=== PATIENT | male | born 1995 | race African-American/Black ===

== ENCOUNTER 2018-10-03 05:24 | Inpatient (IN) | payer OTHER ==
[~2018-10-03] VITALS: Ht 175.3 cm; Wt 113.4 kg
[~2018-10-03 05:24] MED LIST: ALBU8.5H6 INH; FLUT1DIS3 IH
[2018-10-03] MEDS ORDERED: MAGNESIUM SULFATE 1GM 100 ML IV ONE (05:30)
[2018-10-03] MEDS ORDERED: ALBUTEROL SULFATE 2.5 MG/3 ML NEBU. ONE (05:31)
--- NOTE | 2018-10-03 05:42 | PHYS DOC ---
Past Medical History Past Medical History: Asthma Past Surgical History: Tonsillectomy Alcohol Use: None Drug Use: None Adult General Chief Complaint Chief Complaint: SHORTNESS OF BREATH HPI HPI Patient is a 23 year old male who is presenting to the emergency room with severe shortness of breath onset about one or 2 hours ago he was he was having some asthma symptoms but it got much worse at that time no recent illnesses no fever history is limited by the patient's respiratory difficulties. Review of Systems Review of Systems Constitutional: Denies fever or chills [] Cardiovascular: No additional information not addressed in HPI [] Neurologic: Denies headache, focal weakness or sensory changes [] Endocrine: Denies polyuria or polydipsia [] All other systems were reviewed and found to be within normal limits, except as documented in this note. Current Medications Current Medications Current Medications Medications (Trade) Dose Ordered Sig/[place] Start Time Stop Time Status Last Admin Dose Admin Albuterol Sulfate (Ventolin Neb Soln) 2.5 mg STK-MED ONCE 10/03/18 05:31 10/03/18 05:32 DC Magnesium Sulfate 50 ml @ 25 mls/hr 1X ONCE 10/03/18 06:00 10/03/18 07:59 Magnesium Sulfate/ Dextrose 100 ml @ 100 mls/hr 1X ONCE 10/03/18 05:30 10/03/18 05:35 DC Methylprednisolone Sodium Succinate (SOLU-Medrol 125MG VIAL) 125 mg 1X ONCE 10/03/18 06:00 10/03/18 06:01 Sodium Chloride 1,000 ml @ 1,000 mls/hr 1X ONCE 10/03/18 06:00 10/03/18 06:59 Allergies Allergies Allergies Coded Allergies Type Severity Reaction Last Updated Verified No Known Drug Allergies 11/13/13 No Physical Exam Physical Exam Constitutional: Well developed, well nourished, moderate to severe distress HENT: Normocephalic, atraumatic, bilateral external ears normal, oropharynx moist, no oral exudates, nose normal. [] Eyes: PERRLA, EOMI, conjunctiva normal, no discharge. [] Neck: Normal range of motion, no tenderness, supple, no stridor. [] Cardiovascular: Mild tachycardia Lungs & Thorax: Wheezing noted bilaterally with increased respiratory effort the patient is speaking full sentences Abdomen: Bowel sounds normal, soft, no tenderness, no masses, no pulsatile masses. [] Skin: Diaphoretic Back: No tenderness, no CVA tenderness. [] Extremities: No tenderness, no cyanosis, no clubbing, ROM intact, no edema. [] Neurologic: Alert and oriented X 3, normal motor function, normal sensory function, no focal deficits noted. [] Psychologic: Affect normal, judgement normal, mood normal. [] BP 144/82 SAT 79 RA ON MY FIRST EVAL. UP TO 91 ON NRB. TACHYPNEIC TO 30'S. EKG EKG [] Radiology/Procedures Radiology/Procedures [] Course & Med Decision Making Course & Med Decision Making Pertinent Labs and Imaging studies reviewed. (See chart for details) [] Critical care time was 45 minutes exclusive of procedures. For management of acute hypoxemic respiratory failure. nrb sat 91. was 66 in triage 79 first in room once at rest. nrb sat up to 91-2, pt breathing more comfortably. lungs diminshed throughout. --> after 30 min of nebs some improved aeration, still tachypneic but pt states he feels better. cxr MY READ NEGATIVE ACUTE. pt has never been intubated he tells me. gave solumedrol continuous nebs and magnesium WILL DISCUSS with hospitalist service. will ask amando to look at labs. Dragon Disclaimer Andréson Disclaimer This electronic medical record was generated, in whole or in part, using a voice recognition dictation system. Departure Departure Impression: Primary Impression: Asthma exacerbation Disposition: ADMITTED INPATIENT Admitting Physician: EV Condition: STABLE Referrals: DANIELE FISHER DO (PCP) MARCUS ATWOOD MD Oct 03, 2018 05:42
[2018-10-03] MEDS ORDERED: methylPREDNISolone SOD SUCC PF 125 MG/2 ML VIAL. IV ONE (06:00)
[2018-10-03] MEDS ORDERED: IV NORMAL SALINE 1000ML BAG 1,000 ML IV ONE (06:00)
[2018-10-03] MEDS ORDERED: IV NORMAL SALINE 1000ML BAG 1,000 ML IV SCH (06:00)
[2018-10-03] MEDS ORDERED: ALBUTEROL SULFATE 2.5 MG/3 ML NEBU. CONT NEB ONE (06:00)
[2018-10-03] MEDS ORDERED: MAGNESIUM SULFATE 2GM 50 ML IV ONE (06:00)
[2018-10-03 06:06] LABS: BASO % 0 % (0-3); EOS # 0.3 x10^3/uL (0.0-0.7); EOS % 3 % (0-3); HEMATOCRIT 48.5 % (39.0-53.0); HEMOGLOBIN 16.3 g/dL (13.0-17.5); LYMPH # 4.1 x10^3/uL (1.0-4.8); LYMPH % 45 % (24-48); MEAN CORPUSCULAR HEMOGLOBIN 29 pg (25-35); MEAN CORPUSCULAR HGB CONC 34 g/dL (31-37); MEAN CORPUSCULAR VOLUME 87 fL (79-100); MONO # 0.7 x10^3/uL (0.0-1.1); MONO % 7 % (0-9); NEUT # 4.1 x10^3uL (1.8-7.7); NEUT % 45 % (31-73); PLATELET COUNT 335 x10^3/uL (140-400); RED BLOOD COUNT 5.56 x10^6/uL (4.30-5.70); RED CELL DISTRIBUTION WIDTH 13.7 % (11.5-14.5); WHITE BLOOD COUNT 9.2 x10^3/uL (4.0-11.0)
[2018-10-03 06:16] LABS: CALCIUM 9.2 mg/dL (8.5-10.1); CREATININE 1.5 mg/dL (0.7-1.3); GFR 71.5; POTASSIUM 3.5 mmol/L (3.5-5.1)
[2018-10-03 06:22] LABS: ALBUMIN 4.2 g/dL (3.4-5.0); ALBUMIN/GLOBULIN RATIO 1.1 (1.0-1.7); TOTAL BILIRUBIN 0.7 mg/dL (0.2-1.0); TOTAL PROTEIN 7.9 g/dL (6.4-8.2)
--- NOTE | 2018-10-03 06:40 | RAD ---
Chest radiograph 10/03/2018 5:30 AM INDICATION: Shortness of breath COMPARISON: None available TECHNIQUE: Portable upright frontal view of the chest is provided. FINDINGS: The cardiomediastinal silhouette is within normal limits. There are no pleural effusions. There is no pulmonary vascular congestion. There is no pneumothorax. The lungs are clear. No significant osseous abnormality is identified. IMPRESSION: No acute cardiopulmonary process. Electronically signed by: Rosalind Vega MD (10/03/2018 6:37 AM) [facility]
--- NOTE | 2018-10-03 07:38 | EKG ---
[facility] [address] [place] [address] Test Date: 2018-10-03 Test Time: 05:57:17 Pat Name: EDMAR TORRES Department: Room: Gender: M [employer]: : 1995 Requested By: MARCUS ATWOOD Order Number: [id number] Reading MD: Measurements Intervals [place] Rate: 92 P: 53 CO: 176 QRS: -76 QRSD: 86 T: 28 QT: 326 QTc: 408 Interpretive Statements SINUS RHYTHM ABNORMAL LEFT AXIS DEVIATION LEFT ANTERIOR FASCICULAR BLOCK INCOMPLETE RIGHT BUNDLE BRANCH BLOCK ABNORMAL ECG RI6.01 Unconfirmed report No previous ECG available for comparison
--- NOTE | 2018-10-03 07:48 | PDOC1 ---
History and Physical Date of Admission Date of Admission DATE: 10/03/18 TIME: 07:47 Identification/Chief Complaint Chief Complaint Shortness of breath Source Source: Patient History of Present Illness History of Present Illness Mr Tran is a 23yo college student, asthmatic who p/w shortness of breath and hypoxia when helping a friend move yesterday. Notes the home was very [place]. He has albuterol rescue inhaler and symbicort which did not alleviate his symptoms. Over 1 hour of nebulizers in the ED did not help significantly either. CXR did not show any sign of PE or consolidation. EMS noted pulse oximetry 86%, was on NRB in ED. No recent sick contacts, no history of intubation. Cr noted at 1.5 and AST elevated at 77. Past Medical History Cardiovascular: No pertinent hx Pulmonary: Asthma GI: No pertinent hx Heme/Onc: No pertinent hx Hepatobiliary: No pertinent hx Psych: No pertinent hx Rheumatologic: No pertinent hx Infectious disease: No pertinent hx ENT: No pertinent hx Renal/: No pertinent hx Endocrine: No pertinent hx Dermatology: No pertinent hx Past Surgical History Past Surgical History: No pertinent history Family History Family History: Asthma Social History Smoke: <1 pack per day ALCOHOL: rare Drugs: None Current Problem List Problem List Problems Medical Problems: (1) Asthma exacerbation Status: Acute Current Medications Current Medications Current Medications Magnesium Sulfate/ Dextrose 100 ml @ 100 mls/hr 1X ONCE IV ; Start 10/03/18 at 05:30; Stop 10/03/18 at 05:35; Status DC Albuterol Sulfate (Ventolin Neb Soln) 10 mg 1X ONCE CONT NEB Last administered on 10/03/18at 06:00; Start 10/03/18 at 06:00; Stop 10/03/18 at 06:01; Status DC Methylprednisolone Sodium Succinate (SOLU-Medrol 125MG VIAL) 125 mg 1X ONCE IV Last administered on 10/03/18at 06:05; Start 10/03/18 at 06:00; Stop 10/03/18 at 06:01; Status DC Albuterol Sulfate (Ventolin Neb Soln) 2.5 mg STK-MED ONCE .ROUTE ; Start 10/03/18 at 05:31; Stop 10/03/18 at 05:32; Status DC Magnesium Sulfate 50 ml @ 25 mls/hr 1X ONCE IV Last administered on 10/03/18at 06:06; Start 10/03/18 at 06:00; Stop 10/03/18 at 07:59 Sodium Chloride 1,000 ml @ 1,000 mls/hr 1X ONCE IV Last administered on 10/03/18at 06:00; Start 10/03/18 at 06:00; Stop 10/03/18 at 06:59; Status DC Sodium Chloride 1,000 ml @ 100 mls/hr Q10H IV ; Start 10/03/18 at 06:00; Stop 10/04/18 at 05:59 Albuterol/ Ipratropium (Duoneb) 3 ml RTQID NEB ; Start 10/03/18 at 08:00; Stop 10/04/18 at 07:59 Active Scripts Active Reported Advair 250-50 Diskus (Fluticasone/Salmeterol) 1 Each Disk.w.dev 1 Inh IH BID Albuterol Sulfate Hfa Inhaler (Albuterol Sulfate) 8.5 Gm Hfa.aer.ad 2 Puff INH Q4HRS Allergies Allergies: Coded Allergies: No Known Drug Allergies (Unverified , 11/13/13) ROS General: YES: Fatigue, Malaise; No: Chills, Night Sweats, Appetite, Other PSYCHOLOGICAL ROS: No: Anxiety, Behavioral Disorder, Concentration difficultie, Decreased libido, Depression, Disorientation, Hallucinations, Hostility, Irritablity, Memory difficulties, Mood Swings, Obsessive thoughts, Physical abuse, Sexual abuse, Sleep disturbances, Suicidal ideation, Other Eyes: No Blurry vision, No Decreased vision, No Double vision, No Dry eyes, No Excessive tearing, No Eye Pain, No Itchy Eyes, No Loss of vision, No Photophobia, No Scotomata, No Uses contacts, No Uses glasses, No Other HEENT: No: Heacaches, Visual Changes, Hearing change, Nasal congestion, Nasal discharge, Oral lesions, Sinus pain, Sore Throat, Epistaxis, Sneezing, Snoring, Tinnitus, Vertigo, Vocal changes, Other ALLERGY AND IMMUNOLOGY: YES: Nasal Congestion, Seasonal Allergies; No: Hives, Insect Bite Sensitivity, Itchy/Watery Eyes, Post Nasal Drip, Other Hematological and Lymphatic: No: Bleeding Problems, Blood Clots, Blood Transfusions, Brusing, Night Sweats, Pallor, Swollen Lymph Nodes, Other ENDOCRINE: No: Breast Changes, Galactorrhea, Hair Pattern Changes, Hot Flashes, Malaise/lethargy, Mood Swings, Palpitations, Polydipsia/polyuria, Skin Changes, Temperature Intolerance, Unexpected Weight Changes, Other Breast: No New/Changing Breast Lumps, No Nipple changes, No Nipple discharge, No Other Respiratory: YES: Cough, Shortness of breath, SOB with excertion, Tachypnea, Wheezing; No: Hemoptysis, Orthopnea, Pleuritic Pain, Sputum Changes, Stridor, Other Cardiovascular: No Chest Pain, No Palpitations, No Orthopnea, No Paroxysmal Noc. Dyspnea, No Edema, No Lt Headedness, No Other Gastrointestinal: No Nausea, No Vomiting, No Abdominal Pain, No Diarrhea, No Constipation, No Melena, No Hematochezia, No Other Genitourinary: No Dysuria, No Frequency, No Incontinence, No Hematuria, No Retention, No Discharge, No Urgency, No Pain, No Flank Pain, No Other, No , No , No , No , No , No , No Musculoskeletal: No Gait Disturbance, No Joint Pain, No Joint Stiffness, No Joint Swelling, No Muscle Pain, No Muscular Weakness, No Pain In:, No Swelling In:, No Other Neurological: No Behavorial Changes, No Bowel/Bladder ControlChng, No Confusion, No Dizziness, No Gait Disturbance, No Headaches, No Impaired Coord/balance, No Memory Loss, No Numbness/Tingling, No Seizures, No Speech Problems, No Tremors, No Visual Changes, No Weakness, No Other Skin: No Dry Skin, No Eczema, No Hair Changes, No Lumps, No Mole Changes, No Mottling, No Nail Changes, No Pruritus, No Rash, No Skin Lesion Changes, No Other, No Acne Physical Exam General: Alert, Oriented X3, Cooperative, No acute distress HEENT: Atraumatic, PERRLA, EOMI, Mucous membr. moist/pink Lungs: Other (Scattered wheezing, prolonged expiratory phase, little air movement) Heart: S1S2, RRR Abdomen: Normal bowel sounds, Soft, No tenderness, No hepatosplenomegaly, No masses Rectal Exam: not examined Extremities: No clubbing, No cyanosis, No edema, Normal pulses, No tenderness/swelling Skin: No rashes, No breakdown, No significant lesion Neuro: Normal gait, Normal speech, Strength at 5/5 X4 ext, Normal tone, Sensation intact, Cranial nerves 3-12 NL, Reflexes 2+ Psych/Mental Status: Mental status NL, Mood NL Vitals Vitals Vital Signs Date Time Temp Pulse Resp B/P (MAP) Pulse Ox O2 Delivery O2 Flow Rate FiO2 10/03/18 05:59 94 NonRebreather Mask 15.0 10/03/18 05:30 98.0 106 29 144/82 (102) 98.0 Labs Labs Laboratory Tests Test 10/03/18 05:35 White Blood Count 9.2 x10^3/uL (4.0-11.0) Red Blood Count 5.56 x10^6/uL (4.30-5.70) Hemoglobin 16.3 g/dL (13.0-17.5) Hematocrit 48.5 % (39.0-53.0) Mean Corpuscular Volume 87 fL (79-100) Mean Corpuscular Hemoglobin 29 pg (25-35) Mean Corpuscular Hemoglobin Concent 34 g/dL (31-37) Red Cell Distribution Width 13.7 % (11.5-14.5) Platelet Count 335 x10^3/uL (140-400) Neutrophils (%) (Auto) 45 % (31-73) Lymphocytes (%) (Auto) 45 % (24-48) Monocytes (%) (Auto) 7 % (0-9) Eosinophils (%) (Auto) 3 % (0-3) Basophils (%) (Auto) 0 % (0-3) Neutrophils # (Auto) 4.1 x10^3uL (1.8-7.7) Lymphocytes # (Auto) 4.1 x10^3/uL (1.0-4.8) Monocytes # (Auto) 0.7 x10^3/uL (0.0-1.1) Eosinophils # (Auto) 0.3 x10^3/uL (0.0-0.7) Basophils # (Auto) 0.0 x10^3/uL (0.0-0.2) Sodium Level 141 mmol/L (136-145) Potassium Level 3.5 mmol/L (3.5-5.1) Chloride Level 102 mmol/L (98-107) Carbon Dioxide Level 28 mmol/L (21-32) Anion Gap 11 (6-14) Blood Urea Nitrogen 18 mg/dL (8-26) Creatinine 1.5 mg/dL (0.7-1.3) Estimated GFR (Cockcroft-Gault) 71.5 BUN/Creatinine Ratio 12 (6-20) Glucose Level 102 mg/dL (70-99) Calcium Level 9.2 mg/dL (8.5-10.1) Total Bilirubin 0.7 mg/dL (0.2-1.0) Aspartate Amino Transf (AST/SGOT) 77 U/L (15-37) Alanine Aminotransferase (ALT/SGPT) 44 U/L (16-63) Alkaline Phosphatase 69 U/L (46-116) KK-Qsl-O-Type Natriuretic Peptide 9 pg/mL (0-124) Total Protein 7.9 g/dL (6.4-8.2) Albumin 4.2 g/dL (3.4-5.0) Albumin/Globulin Ratio 1.1 (1.0-1.7) Laboratory Tests Test 10/03/18 05:35 White Blood Count 9.2 x10^3/uL (4.0-11.0) Red Blood Count 5.56 x10^6/uL (4.30-5.70) Hemoglobin 16.3 g/dL (13.0-17.5) Hematocrit 48.5 % (39.0-53.0) Mean Corpuscular Volume 87 fL (79-100) Mean Corpuscular Hemoglobin 29 pg (25-35) Mean Corpuscular Hemoglobin Concent 34 g/dL (31-37) Red Cell Distribution Width 13.7 % (11.5-14.5) Platelet Count 335 x10^3/uL (140-400) Neutrophils (%) (Auto) 45 % (31-73) Lymphocytes (%) (Auto) 45 % (24-48) Monocytes (%) (Auto) 7 % (0-9) Eosinophils (%) (Auto) 3 % (0-3) Basophils (%) (Auto) 0 % (0-3) Neutrophils # (Auto) 4.1 x10^3uL (1.8-7.7) Lymphocytes # (Auto) 4.1 x10^3/uL (1.0-4.8) Monocytes # (Auto) 0.7 x10^3/uL (0.0-1.1) Eosinophils # (Auto) 0.3 x10^3/uL (0.0-0.7) Basophils # (Auto) 0.0 x10^3/uL (0.0-0.2) Sodium Level 141 mmol/L (136-145) Potassium Level 3.5 mmol/L (3.5-5.1) Chloride Level 102 mmol/L (98-107) Carbon Dioxide Level 28 mmol/L (21-32) Anion Gap 11 (6-14) Blood Urea Nitrogen 18 mg/dL (8-26) Creatinine 1.5 mg/dL (0.7-1.3) Estimated GFR (Cockcroft-Gault) 71.5 BUN/Creatinine Ratio 12 (6-20) Glucose Level 102 mg/dL (70-99) Calcium Level 9.2 mg/dL (8.5-10.1) Total Bilirubin 0.7 mg/dL (0.2-1.0) Aspartate Amino Transf (AST/SGOT) 77 U/L (15-37) Alanine Aminotransferase (ALT/SGPT) 44 U/L (16-63) Alkaline Phosphatase 69 U/L (46-116) ET-Rma-N-Type Natriuretic Peptide 9 pg/mL (0-124) Total Protein 7.9 g/dL (6.4-8.2) Albumin 4.2 g/dL (3.4-5.0) Albumin/Globulin Ratio 1.1 (1.0-1.7) Images Images CXR - No acute cardiopulmonary process. VTE Prophylaxis Ordered VTE Prophylaxis Devices: Yes VTE Pharmacological Prophylaxi: No Assessment/Plan Assessment/Plan A/P: Acute asthma exacerbation - likely 2/2 dust/mold exposure. Will add pulmicort nebs, solumedrol q 8 hours, consult pulm. Radhair Acute hypoxia - Likely from asthma, will wean O2 as tolerated MASSIMO - no history of kidney disease. BUN 18, will give some gentle hydration, this is likely vasomotor nephropathy from dehydration Transaminitis - no recent ETOH ingestion, AST is all that is elevated. Will monitor trend. No abdominal pain FEN - general diet. NSS 1L PPX - SCDs FULL CODE Inpatient for acute asthma exacerbation with hypoxia, needs close monitoring. BEST EUBANKS MD Oct 03, 2018 07:48
[2018-10-03] MEDS ORDERED: BUDESONIDE 0.5 MG/2 ML NEBU. NEB SCH (08:00)
[2018-10-03] MEDS: IPRATRPIUM/ALBUTEROL 0.5/2.5MG 3 ML NEBU. NEB SCH ×2 (08:48→12:09)
[2018-10-03] MEDS ORDERED: CETIRIZINE HCL 10 MG TABLET. PO SCH (09:00)
[2018-10-03 11:00] VITALS: BP 131/56
[2018-10-03] MEDS ORDERED: MONT10TA49 PO (13:08)
[2018-10-03] MEDS ORDERED: PRED20TA PO (13:08)
[2018-10-03] MEDS ORDERED: methylPREDNISolone SOD SUCC PF 40 MG/ML VIAL. IV SCH (14:00)
--- NOTE | 2018-10-03 14:28 | NUR ---
Discharge Note: EDMAR TRAN [address] [place] [address] Discharge instructions and discharge home medications reviewed with Patient and a copy given. All questions have been answered and understanding verbalized. The following instructions and handouts were given: follow up instructions, activity, and medication list. Discontinued lines and drains: Peripheral IV discontinued and intact. Patient discharged to Home or Self Care with Friend via Ambulated
[2018-10-03] MEDS ORDERED: MONTELUKAST SODIUM 10 MG TABLET. PO SCH (21:00)
== END 2018-10-03 14:00 | disposition home or self-care (01) | DRG 202 ==
LOC: ER 05:24 → ED HOLD 06:53 → 6 SOUTH 11:00
PROVIDERS: ADMIT Family Medicine; ATTEND Family Medicine
DX: J45.901 Unspecified asthma with (acute) exacerbation (principal); N17.0 Acute kidney failure with tubular necrosis; E86.0 Dehydration; F17.210 Nicotine dependence, cigarettes, uncomplicated; R09.02 Hypoxemia; Z77.120 Contact with and (suspected) exposure to mold (toxic); Z82.5 Family history of asthma and other chronic lower respiratory diseases
CPT/HCPCS: 36415; 71045; 80053; 83880; 85025; 93005; 94640; 94644; 94760; J2920; J2930; J3475; J7030; J7613; J7620; J7626

== ENCOUNTER 2019-11-05 08:51 | Emergency (ER) | payer OTHER ==
[~2019-11-05] VITALS: Ht 172.7 cm; Wt 125.0 kg
[~2019-11-05 08:51] MED LIST changes: +MONT10TA49 PO; +PRED20TA PO
[2019-11-05 09:38] LABS: BILIRUBIN,URINE NEGATIVE (NEG); CLARITY,URINE CLEAR; COLOR,URINE YELLOW; NITRITE,URINE NEGATIVE (NEG); PH,URINE 6.5 (<5.0-8.0); PROTEIN,URINE NEGATIVE (NEG-TRACE); UROBILINOGEN,URINE 0.2 mg/dL (0.2 mg/dL)
[2019-11-05 09:52] LABS: BACTERIA,URINE 0 /HPF (0-FEW); RBC,URINE 0 /HPF (0-2); SQUAMOUS EPITHELIAL CELL,UR OCC /LPF; WBC,URINE 0 /HPF (0-4)
--- NOTE | 2019-11-05 10:32 | RAD ---
EXAM: Villar scale and color Doppler scrotal sonogram. HISTORY: Right scrotal mass. TECHNIQUE: Villar scale and color Doppler sonographic imaging of the scrotum with spectral waveform analysis was performed. COMPARISON: None. FINDINGS: The testes are normal in size and demonstrate normal symmetric blood flow. No focal testicular parenchymal lesion is seen. The epididymides are symmetric in size and demonstrate symmetric blood flow, the right of which corresponds with the site of reported palpable concern. No hydrocele or varicocele is seen. No scrotal wall thickening or inguinal hernia is seen. IMPRESSION: Unremarkable scrotal sonogram. There is a normal-appearing right epididymis at the site of concern. Continued clinical follow-up of palpable abnormalities is recommended. Repeat imaging can be performed if there is continuing concern. Electronically signed by: Theodora Barba MD (11/05/2019 10:29 AM) [id number]
--- NOTE | 2019-11-05 10:50 | PHYS DOC ---
Past Medical History Past Medical History: Asthma Past Surgical History: Tonsillectomy Smoking Status: Light Tobacco Smoker Alcohol Use: Rarely Drug Use: None General Adult EDM: Chief Complaint: TESTICULAR PAIN OR INJURY HPI: HPI: Patient is a 24 year old male who presented to ER today for evaluation of right side scrotal swelling. Patient denies penile discharge or any fever or any pelvic pain. Patient felt little irritation in his scrotum all the symptoms have been several days ago. Patient denies any injury Review of Systems: Review of Systems: Constitutional: Denies fever or chills. [] Eyes: Denies change in visual acuity. [] HENT: Denies nasal congestion or sore throat. [] Respiratory: Denies cough or shortness of breath. [] Cardiovascular: Denies chest pain or edema. [] GI: Denies abdominal pain, nausea, vomiting, bloody stools or diarrhea. [] : Denies dysuria. [] Musculoskeletal: Denies back pain or joint pain. [] Integument: Denies rash. [] Neurologic: Denies headache, focal weakness or sensory changes. [] Endocrine: Denies polyuria or polydipsia. [] Lymphatic: Denies swollen glands. [] Psychiatric: Denies depression or anxiety. [] Heart Score: Risk Factors: Risk Factors: DM, Current or recent (<one month) smoker, HTN, HLP, family history of CAD, obesity. Risk Scores: Score 0 - 3: 2.5% MACE over next 6 weeks - Discharge Home Score 4 - 6: 20.3% MACE over next 6 weeks - Admit for Clinical Observation Score 7 - 10: 72.7% MACE over next 6 weeks - Early Invasive Strategies Allergies: Allergies: Allergies Coded Allergies Type Severity Reaction Last Updated Verified No Known Drug Allergies 11/13/13 No Physical Exam: PE: Constitutional: Well developed, well nourished, no acute distress, non-toxic appearance. [] HENT: Normocephalic, atraumatic, bilateral external ears normal, oropharynx mo ist, no oral exudates, nose normal. [] Eyes: PERRLA, EOMI, conjunctiva normal, no discharge. [] Neck: Normal range of motion, no tenderness, supple, no stridor. [] Cardiovascular:Heart rate regular rhythm, no murmur [] Lungs & Thorax: Bilateral breath sounds clear to auscultation [] Abdomen: Bowel sounds normal, soft, no tenderness, no masses, no pulsatile masses. [] Skin: Warm, dry, no erythema, no rash. [] Back: No tenderness, no CVA tenderness. [] Extremities: No tenderness, no cyanosis, no clubbing, ROM intact, no edema. [] Neurologic: Alert and oriented X 3, normal motor function, normal sensory function, no focal deficits noted. [] Psychologic: Affect normal, judgement normal, mood normal. [] EXAM: No swelling or tenderness to palpation on the right side scrotum, no scrotal swelling, no testicular swelling, no penile discharge no external skin lesion. Current Patient Data: Labs: Laboratory Tests Test 11/05/19 09:30 Urine Collection Type Unknown Urine Color Yellow Urine Clarity Clear Urine pH 6.5 (<5.0-8.0) Urine Specific [place] <=1.005 (1.000-1.030) Urine Protein Negative mg/dL (NEG-TRACE) Urine Glucose (UA) Negative mg/dL (NEG) Urine Ketones (Stick) Negative mg/dL (NEG) Urine Blood Negative (NEG) Urine Nitrite Negative (NEG) Urine Bilirubin Negative (NEG) Urine Urobilinogen Dipstick 0.2 mg/dL (0.2 mg/dL) Urine Leukocyte Esterase Negative (NEG) Urine RBC 0 /HPF (0-2) Urine WBC 0 /HPF (0-4) Urine Squamous Epithelial Cells Occ /LPF Urine Bacteria 0 /HPF (0-FEW) Vital Signs: Vital Signs Date Time Temp Pulse Resp B/P (MAP) Pulse Ox O2 Delivery O2 Flow Rate FiO2 11/05/19 09:26 97.1 72 18 138/79 (98) 100 Room Air 97.1 EKG: EKG: [] Radiology/Procedures: Radiology/Procedures: [][facility] [address] [place], [place] [id number] IMAGING REPORT Signed PATIENT: EDMAR TRAN JACCOUNT: [id number] : 1995 LOCATION: ER AGE: 24 SEX: M EXAM STATUS: REG ER ORD. PHYSICIAN: KIM,PETER T DO REASON: RIGHT SCROTAL MASS PROCEDURE: TESTICULAR/SCROTUM EXAM: Villar scale and color Doppler scrotal sonogram. HISTORY: Right scrotal mass. TECHNIQUE: Villar scale and color Doppler sonographic imaging of the scrotum with spectral waveform analysis was performed. COMPARISON: None. FINDINGS: The testes are normal in size and demonstrate normal symmetric blood flow. No focal testicular parenchymal lesion is seen. The epididymides are symmetric in size and demonstrate symmetric blood flow, the right of which corresponds with the site of reported palpable concern. No hydrocele or varicocele is seen. No scrotal wall thickening or inguinal hernia is seen. IMPRESSION: Unremarkable scrotal sonogram. There is a normal-appearing right epididymis at the site of concern. Continued clinical follow-up of palpable abnormalities is recommended. Repeat imaging can be performed if there is continuing concern. Electronically signed by: Theodora Metz MD (11/05/2019 10:29 AM) [id number] DICTATED and SIGNED BY: THEODORA METZ MD DATE: 11/05/19 1029 Course & Med Decision Making: Course & Med Decision Making Pertinent Labs and Imaging studies reviewed. (See chart for details) [] Dragon Disclaimer: Dragon Disclaimer: This electronic medical record was generated, in whole or in part, using a voice recognition dictation system. Departure Departure Impression: Primary Impression: Testicular/scrotal pain Disposition: 01 HOME, SELF-CARE Condition: STABLE Referrals: BRIANA GALEANO (PCP) PLEASE FOLLOW UP WITH YOUR DOCTOR NEEDED Patient Instructions: Scrotal Swelling Justicifation of Admission Dx: Justifications for Admission: Justification of Admission Dx: N/A ANDRESSA KIM DO Nov 05, 2019 10:49
[2019-11-05 10:55] VITALS: BP 142/85
== END 2019-11-05 11:00 | disposition home or self-care (01) ==
LOC: ER 08:51
DX: N50.82 Scrotal pain (principal); J45.909 Unspecified asthma, uncomplicated; Z90.89 Acquired absence of other organs; Z87.891 Personal history of nicotine dependence
CPT/HCPCS: 76870; 81001; 99284

== ENCOUNTER 2020-06-02 06:48 | Emergency (ER) | payer OTHER ==
[~2020-06-02] VITALS: Ht 176.5 cm; Wt 111.8 kg
[2020-06-02 07:09] LABS: BASO % 0 % (0-3); EOS # 0.3 x10^3/uL (0.0-0.7); EOS % 2 % (0-3); HEMATOCRIT 48.4 % (39.0-53.0); HEMOGLOBIN 15.8 g/dL (13.0-17.5); LYMPH # 6.4 x10^3/uL (1.0-4.8); LYMPH % 49 % (24-48); MEAN CORPUSCULAR HEMOGLOBIN 29 pg (25-35); MEAN CORPUSCULAR HGB CONC 33 g/dL (31-37); MEAN CORPUSCULAR VOLUME 89 fL (79-100); MONO # 1.2 x10^3/uL (0.0-1.1); MONO % 9 % (0-9); NEUT % 39 % (31-73); PLATELET COUNT 383 x10^3/uL (140-400); RED BLOOD COUNT 5.48 x10^6/uL (4.30-5.70); RED CELL DISTRIBUTION WIDTH 14.1 % (11.5-14.5)
[2020-06-02 07:18] LABS: CALCIUM 8.6 mg/dL (8.5-10.1); CREATININE 1.4 mg/dL (0.7-1.3); GFR 62.8; POTASSIUM 3.4 mmol/L (3.5-5.1)
[2020-06-02 07:24] LABS: ALBUMIN/GLOBULIN RATIO 1.1 (1.0-1.7); MAGNESIUM 2.2 mg/dL (1.8-2.4); TOTAL BILIRUBIN 0.7 mg/dL (0.2-1.0); TOTAL PROTEIN 7.6 g/dL (6.4-8.2)
[2020-06-02] MEDS ORDERED: MAGNESIUM SULFATE 1GM 100 ML IV ONE (07:30)
[2020-06-02] MEDS ORDERED: methylPREDNISolone SOD SUCC PF 125 MG/2 ML VIAL. IV ONE (07:30)
[2020-06-02] MEDS ORDERED: IV NORMAL SALINE 1000ML BAG 1,000 ML IV ONE (07:30)
[2020-06-02] MEDS ORDERED: IPRATRPIUM/ALBUTEROL 0.5/2.5MG 3 ML NEBU. NEB ONE ×2 (07:30→08:00)
--- NOTE | 2020-06-02 07:36 | RAD ---
INDICATION: Reason: dyspnea / Spl. Instructions: / History: COMPARISON: September 2018 FINDINGS: Single view of chest obtained. Cardiac silhouette is similar to prior. No definite focal airspace consolidation or pulmonary edema. IMPRESSION: * No focal airspace consolidation or edema. Electronically signed by: Sean Ramirez MD (06/02/2020 7:34 AM) [id number]
--- NOTE | 2020-06-02 07:52 | ED.ADGEN ---
Past Medical History Past Medical History: Asthma Past Surgical History: Tonsillectomy Smoking Status: Never Smoker Alcohol Use: Rarely General Adult EDM: Chief Complaint: SHORTNESS OF BREATH HPI: HPI: Patient is a 25 year old male coming in for shortness of breath just prior to arrival. Patient is a history of asthma centralizes rescue inhaler without improvement. Has a history of severe asthma attacks in the past. States he otherwise has been well. Attributes this exacerbation to air quality. Denies any recent illness. Review of Systems: Review of Systems: All other systems within normal limits except for as noted in the HPI Current Medications: Current Medications Medications (Trade) Dose Ordered Sig/[place] Start Time Stop Time Status Last Admin Dose Admin Albuterol/ Ipratropium (Duoneb) 3 ml 1X ONCE 06/02/20 08:00 06/02/20 08:01 DC 06/02/20 08:00 3 ML Magnesium Sulfate/ Dextrose 100 ml @ 100 mls/hr 1X ONCE 06/02/20 07:30 06/02/20 08:29 DC 06/02/20 07:31 100 MLS/HR Methylprednisolone Sodium Succinate (SOLU-Medrol 125MG VIAL) 125 mg 1X ONCE 06/02/20 07:30 06/02/20 07:31 DC 06/02/20 07:35 125 MG Sodium Chloride 1,000 ml @ 1,000 mls/hr 1X ONCE 06/02/20 07:30 06/02/20 08:29 DC 06/02/20 07:30 1,000 MLS/HR Allergies: Allergies: Allergies Coded Allergies Type Severity Reaction Last Updated Verified No Known Drug Allergies 06/02/20 No Physical Exam: PE: Constitutional: Well developed, well nourished, no acute distress, non-toxic appearance. [] HENT: Normocephalic, atraumatic, bilateral external ears normal, nose normal. [] Eyes: PERRLA, conjunctiva normal, no discharge. [] Neck: No rigidity, supple, no stridor. [] Cardiovascular: Tachycardic, brisk cap refill [] Lungs & Thorax: Labored respiration with tachypnea. Bilateral wheezes with crackles at left base [] Abdomen: Soft, nondistended. Skin: Warm, dry, no erythema, no rash. [] Back: Unremarkable Extremities: No deformities, range of motion grossly intact, no lower extremity edema [] Neurologic: Alert and oriented X 3, no focal deficits noted. [] Psychologic: Affect normal, judgement normal, mood normal. [] Current Patient Data: Labs: Laboratory Tests Test 06/02/20 07:00 White Blood Count 13.0 x10^3/uL (4.0-11.0) H Red Blood Count 5.48 x10^6/uL (4.30-5.70) Hemoglobin 15.8 g/dL (13.0-17.5) Hematocrit 48.4 % (39.0-53.0) Mean Corpuscular Volume 89 fL (79-100) Mean Corpuscular Hemoglobin 29 pg (25-35) Mean Corpuscular Hemoglobin Concent 33 g/dL (31-37) Red Cell Distribution Width 14.1 % (11.5-14.5) Platelet Count 383 x10^3/uL (140-400) Neutrophils (%) (Auto) 39 % (31-73) Lymphocytes (%) (Auto) 49 % (24-48) H Monocytes (%) (Auto) 9 % (0-9) Eosinophils (%) (Auto) 2 % (0-3) Basophils (%) (Auto) 0 % (0-3) Neutrophils # (Auto) 5.0 x10^3/uL (1.8-7.7) Lymphocytes # (Auto) 6.4 x10^3/uL (1.0-4.8) H Monocytes # (Auto) 1.2 x10^3/uL (0.0-1.1) H Eosinophils # (Auto) 0.3 x10^3/uL (0.0-0.7) Basophils # (Auto) 0.0 x10^3/uL (0.0-0.2) Sodium Level 145 mmol/L (136-145) Potassium Level 3.4 mmol/L (3.5-5.1) L Chloride Level 105 mmol/L (98-107) Carbon Dioxide Level 29 mmol/L (21-32) Anion Gap 11 (6-14) Blood Urea Nitrogen 13 mg/dL (8-26) Creatinine 1.4 mg/dL (0.7-1.3) H Estimated GFR (Cockcroft-Gault) 62.8 BUN/Creatinine Ratio 9 (6-20) Glucose Level 117 mg/dL (70-99) H Calcium Level 8.6 mg/dL (8.5-10.1) Magnesium Level 2.2 mg/dL (1.8-2.4) Total Bilirubin 0.7 mg/dL (0.2-1.0) Aspartate Amino Transferase (AST) 19 U/L (15-37) Alanine Aminotransferase (ALT) 31 U/L (16-63) Alkaline Phosphatase 61 U/L (46-116) Troponin I Quantitative < 0.017 ng/mL (0.000-0.055) MG-Eld-G-Type Natriuretic Peptide 56 pg/mL (0-124) Total Protein 7.6 g/dL (6.4-8.2) Albumin 4.0 g/dL (3.4-5.0) Albumin/Globulin Ratio 1.1 (1.0-1.7) Laboratory Tests 06/02/20 07:00 Laboratory Tests 06/02/20 07:00 Vital Signs: Vital Signs Date Time Temp Pulse Resp B/P (MAP) Pulse Ox O2 Delivery O2 Flow Rate FiO2 06/02/20 08:01 100 BiPAP/CPAP 06/02/20 06:55 97.4 109 20 193/118 (143) 15.0 97.4 EKG: EKG: Sinus tachycardia with a heart rate of 105 bpm, left axis deviation, no ST elevation or depression, no ectopy, normal intervals. [] Heart Score: Risk Factors: Risk Factors: DM, Current or recent (<one month) smoker, HTN, HLP, family history of CAD, obesity. Risk Scores: Score 0 - 3: 2.5% MACE over next 6 weeks - Discharge Home Score 4 - 6: 20.3% MACE over next 6 weeks - Admit for Clinical Observation Score 7 - 10: 72.7% MACE over next 6 weeks - Early Invasive Strategies Radiology/Procedures: Radiology/Procedures: INDICATION: Reason: dyspnea / Spl. Instructions: / History: COMPARISON: September 2018 FINDINGS: Single view of chest obtained. Cardiac silhouette is similar to prior. No definite focal airspace consolidation or pulmonary edema. IMPRESSION: * No focal airspace consolidation or edema. [] Course & Med Decision Making: Course & Med Decision Making Patient placed on BiPAP and given DuoNeb with improvement. O2 sats went from 62% to 100%. Maintaining sats in the 9% on room air. [] Dragon Disclaimer: Dragon Disclaimer: This electronic medical record was generated, in whole or in part, using a voice recognition dictation system. Departure Departure Impression: Primary Impression: Asthma exacerbation Disposition: 01 DC HOME SELF CARE/HOMELESS Condition: IMPROVED Referrals: BRIANA GALEANO (PCP) Patient Instructions: Asthma Prevention-Brief Scripts Albuterol Sulfate (PROAIR HFA INHALER) 8.5 Gm Hfa.aer.ad 2 PUFF IH PRN Q4-6HRS PRN for wheezing for 21 Days, #1 INHALER 0 Refills Prov: MIGUEL MARTINEZ MD 06/02/20 Fluticasone/Salmeterol (ADVAIR 250-50 DISKUS) 1 Each Disk.w.dev 1 PUFF IH BID for asthma for 30 Days, #1 INHALER 5 Refills Prov: MIGUEL MARTINEZ MD 06/02/20 Prednisone (PREDNISONE) 50 Mg Tablet 1 TAB PO DAILY for steroid, #5 TAB Prov: MIGUEL MARTINEZ MD 06/02/20 MIGUEL MARTINEZ MD Jun 02, 2020 07:52
[2020-06-02 09:13] VITALS: BP 137/60
[2020-06-02] MEDS ORDERED: FLUT1DIS3 IH (09:20)
[2020-06-02] MEDS ORDERED: PRED50TA PO (09:20)
[2020-06-02] MEDS ORDERED: ALBU2.5V8 IH (09:20)
--- NOTE | 2020-06-02 19:42 | EKG ---
[facility] [address] [place] [address] Test Date: 2020-06-02 Test Time: 07:06:14 Pat Name: EDMAR KHAN Department: Room: Gender: M Supervisor Calibration: : 1995 Requested By: MIGUEL MARTINEZ Order Number: [id number] Reading MD: Measurements Intervals [place] Rate: 105 P: 74 MI: 164 QRS: -73 QRSD: 86 T: 35 QT: 312 QTc: 416 Interpretive Statements SINUS TACHYCARDIA ABNORMAL LEFT AXIS DEVIATION LEFT ANTERIOR FASCICULAR BLOCK INCOMPLETE RIGHT BUNDLE BRANCH BLOCK ABNORMAL ECG RI6.02 No previous ECG available for comparison
== END 2020-06-02 10:06 | disposition home or self-care (01) ==
LOC: MERGE 06:48 → ER 06:48
DX: J45.901 Unspecified asthma with (acute) exacerbation (principal); J45.909 Unspecified asthma, uncomplicated; Z90.89 Acquired absence of other organs
CPT/HCPCS: 36415; 71045; 80053; 83735; 83880; 84484; 85025; 93005; 94640; 94660; 94760; 96365; 96375; 99285; J2930; J3475; J7030

== ENCOUNTER 2020-09-03 12:55 | Emergency (ER) | payer OTHER ==
[~2020-09-03] VITALS: Ht 172.7 cm; Wt 132.7 kg
[~2020-09-03 12:55] MED LIST changes: +ALBU2.5V8 IH; +PRED50TA PO
[2020-09-03] MEDS ORDERED: DEXAMETHASONE 4 MG TABLET PO ONE (13:15)
--- NOTE | 2020-09-03 13:25 | PHYS DOC ---
Past Medical History Past Medical History: Asthma Past Surgical History: Tonsillectomy Smoking Status: Light Tobacco Smoker Alcohol Use: Rarely Drug Use: None General Adult EDM: Chief Complaint: SHORTNESS OF BREATH HPI: HPI: 25-year-old -Finnish male past medical history of asthma presents the ED with complaints of shortness of breath for the past month, states this inhaler is low. Some relief with the nebulizer treatment around 1230 this afternoon. Cannot recall last steroid use. No known history of Covid, no Covid vaccination. Reports he does smoke tobacco, marijuana and delta 8. No h/o DVT/PE. Review of Systems: Review of Systems: Constitutional: Denies fever or chills. [] Eyes: Denies change in visual acuity. [] HENT: Denies nasal congestion or sore throat. [] Respiratory: Denies cough or abscess Cardiovascular: Denies chest pain or edema. [] GI: Denies abdominal pain, nausea, vomiting, bloody stools or diarrhea. [] Musculoskeletal: Denies back pain or joint pain or leg swelling Integument: Denies rash or diaphoresis Neurologic: Denies headache, focal weakness or sensory changes. [] Endocrine: Denies polyuria or polydipsia. [] Lymphatic: Denies swollen glands. [] Psychiatric: Denies depression or anxiety. [] Heart Score: C/O Chest Pain: No Risk Factors: Risk Factors: DM, Current or recent (<one month) smoker, HTN, HLP, family history of CAD, obesity. Risk Scores: Score 0 - 3: 2.5% MACE over next 6 weeks - Discharge Home Score 4 - 6: 20.3% MACE over next 6 weeks - Admit for Clinical Observation Score 7 - 10: 72.7% MACE over next 6 weeks - Early Invasive Strategies Allergies: Allergies: Allergies Coded Allergies Type Severity Reaction Last Updated Verified No Known Drug Allergies 11/13/13 No Physical Exam: PE: Constitutional: Well developed, well nourished, no acute distress, non-toxic appearance, afebrile HENT: Normocephalic, atraumatic, no nasal congestion or rhinorrhea Eyes: EOMI, conjunctiva normal, no discharge. Neck: Normal range of motion, supple, Cardiovascular: S1/2 present, regular rhythm Lungs & Thorax: Speaking in full sentences, bilateral equal chest rise, no t achypnea or increased work of breathing, very scant expiratory wheeze at bilateral bases, no rales or crackles, moving air with no tachypnea Abdomen: soft, no tenderness, Skin: Warm, dry, no erythema, no rash. [] Back: No tenderness, no CVA tenderness. [] Extremities: No tenderness, no cyanosis, no unilateral lower extremity edema Neurologic: Alert and oriented X 3, normal motor function, normal sensory function, no focal deficits noted. [] Psychologic: Affect normal, judgement normal, mood normal. [] EKG: EKG: [] Radiology/Procedures: Radiology/Procedures: IMAGING REPORT Signed PATIENT: EDMAR TRAN JACCOUNT: [id number] : 1995 LOCATION: ER AGE: 25 SEX: M EXAM STATUS: REG ER ORD. PHYSICIAN: KARISSA BRIGHT DO REASON: SHORTNESS OF BREATH PROCEDURE: CHEST AP ONLY AP chest. HISTORY: Short of breath AP view was taken of the chest. Lungs are clear. Heart is normal in size. There is no pleural effusion. IMPRESSION: 1. No acute chest disease. Electronically signed by: Chidi Goldstein MD (09/03/2020 1:33 PM) [id number] DICTATED and SIGNED BY: CHIDI GOLDSTEIN MD DATE: 09/03/20 [id number] Impression: 0 criteria No need for further workup, as <2% chance of PE. If no criteria are positive and clinicians pre-test probability is <15%, PERC Rule criteria are satisfied. Course & Med Decision Making: Course & Med Decision Making Pertinent Labs and Imaging studies reviewed. (See chart for details) Concern for very mild asthma exacerbation, poor outpatient follow-up/historian. Patient reports he googles and was worried that he might have "inflammation in the bronchioles." Is not concerned for covid, I offered a swab but pt declines covid testing (I have very low suspicion for covid). Prescribe steroids, albuterol inhaler and Flovent for 30 days. Will discharge home with strict ED return precautions were given for increased work of breathing on difficulty breathing, abscess, fever or confusion. Encouraged urgent outpatient follow-up with PMD and pulmonology for definitive asthma management. Life-threatening processes were considered but are low suspicion at this time, given history, physical exam and ED workup. Pt was educated on all prescription medications and adverse effects. All patient's questions were answered and pt was stable at time of discharge. Life/limb-threatening differential includes but is not limited to, ACS, dysrhythmia, pneumothorax or hemothorax, pulmonary embolus, pneumonia, bronchoconstriction, pulmonary edema, angioedema, epiglottitis, tracheitis, Blaise's angina, RPA/REFRIGERATOR CABINETMAKER, anaphylaxis, angioedema, cardiac tamponade or murmurs, pericarditis, myocarditis, poisoning or toxicity, sepsis or autoimmune/neurologic disease. I spoken with the patient and her caregivers. I explained the patient's condition, diagnoses and treatment plan based on the information available to me at this time. I have answered the patient and her caregiver's questions and addressed any concerns. The patient and her caregivers have a good understanding of patient's diagnosis, condition and treatment plan as can be expected at this point. Vital signs have been stable. Patient's condition is stable and appropriate for discharge from the emergency department. Patient will pursue further outpatient evaluation with primary care physician or other designated or consulting physician as outlined in the discharge instructions. The patient and/or caregivers are agreeable to this plan of care and follow-up instructions have been explained in detail. The patient and/or caregivers have received these instructions in written form and have expressed an understanding of the discharge instructions. The patient and/or caregivers are aware that any significant change of condition or worsening of symptoms should prompt immediate return to this or the closest emergency department or call to 911. Víctor Disclaimer: Víctor Disclaimer: This electronic medical record was generated, in whole or in part, using a voice recognition dictation system. Departure Departure Impression: Primary Impression: Asthma exacerbation Disposition: HOME / SELF CARE / HOMELESS Condition: STABLE Referrals: UNKNOWN PCP NAME (PCP) Follow-up with your primary care physician in the next 7 days or FOLLOW UP WITH FAMILY MEDICINE: [address] [place] [address] Patient Instructions: Asthma, Adult Additional Instructions: FOLLOW UP WITH PULMONOLOGY: For definitive management of asthma [facility] [address] [place] [address] EMERGENCY DEPARTMENT GENERAL DISCHARGE INSTRUCTIONS Thank you for coming to [facility] Emergency Department (ED) today and trusting us with you care. We trust that you had a positive experience in our Emergency Department. If you wish to speak to the department management, you may call the Director at [phone]. YOUR FOLLOW UP INSTRUCTIONS ARE FOLLOWS: 1. Do you have a private Doctor? If you do not have a private doctor, please ask for a resource list of physicians or clinics that may be able to assist you with follow up care. 2. The Emergency Physicain has interpreted your x-rays. The X-Ray specialist will also review them. If there is a change in the findings, you will be notified in 48 hours when at all possible. 3. A lab test or culture has been done, your results will be reviewed and you will be notified if you need a change in treatment. ADDITIONAL INSTRUCTIONS AND INFORMATION: 1. Your care today has been supervised by a physician who is specially trained in emergency care. Many problems require more than one evaluation for a complete diagnosis and treatment. We recommend that you schedule your follow up appointment as recommended to ensure complete treatment of you illness or injury. If you are unable to obtain follow up care and continue to have a problem, or if your condition worsens, we recommend that you return to the ED. 2. We are not able to safely determine your condition over the phone nor are we able to give sound medical advice over the phone. For these safety reasons, if you call for medical advice we will ask you to come to the ED for further evaluation. 3. If you have any questions regarding these discharge instructions please call the ED at [phone]. SAFETY INFORMATION: In the interest of safety, wellness, and injury prevention; we encourage you to wear your sealbelt, if you smoke; quite smoking, and we encourage family to use a protective helmet for bicycling and other sporting events that present an increased risk for head injury. IF YOUR SYMPTOMS WORSEN OR NEW SYMPTOMS DEVELOP, OR YOU HAVE CONCERNS ABOUT YOUR CONDITION; OR IF YOUR CONDITION WORSENS WHILE YOU ARE WAITING FOR YOUR FOLLOW UP APPOINTMENT; EITHER CONTACT YOUR PRIMARY CARE DOCTOR, THE PHYSICIAN WHOSE NAME AND NUMBER YOU WERE GIVEN, OR RETURN TO THE ED IMMEDIATELY. Scripts Fluticasone Propionate (FLOVENT 44MCG HFA) 10.6 Gm Aer.w.adap 2 PUFF IH BID, #10.6 GM 2 Refills Prov: KARISSA BRIGHT DO 09/03/20 Albuterol Sulfate (VENTOLIN HFA INHALER) 18 Gm Hfa.aer.ad 2 PUFF INH QID for FOR ASTHMA, #1 INHALER 0 Refills Prov: KARISSA BRIGHT DO 09/03/20 Methylprednisolone (MEDROL) 4 Mg Tab.ds.pk 1 PKG PO UD for inflammation, #1 PKG Prov: KARISSA BRIGHT DO 09/03/20 KARISSA BRIGHT DO September 03, 2020 13:25
--- NOTE | 2020-09-03 13:35 | RAD ---
AP chest. HISTORY: Short of breath AP view was taken of the chest. Lungs are clear. Heart is normal in size. There is no pleural effusio n. IMPRESSION: 1. No acute chest disease. Electronically signed by: Chidi Bunch MD (09/03/2020 1:33 PM) [id number]
[2020-09-03] MEDS ORDERED: VENTOLIN HFA18 GM INH (14:28)
[2020-09-03] MEDS ORDERED: METH4TAB2 PO (14:28)
[2020-09-03] MEDS ORDERED: FLUT10.6 IH (14:28)
[2020-09-03 14:40] VITALS: BP 126/67
== END 2020-09-03 14:46 | disposition home or self-care (01) ==
LOC: ER 12:55
DX: J45.901 Unspecified asthma with (acute) exacerbation (principal); Z72.0 Tobacco use
CPT/HCPCS: 71045; 99283

== ENCOUNTER 2021-04-11 01:05 | Emergency (ER) | payer OTHER ==
[~2021-04-11 01:05] MED LIST changes: +FLUT10.6 IH; +METH4TAB2 PO; +VENTOLIN HFA18 GM INH
== END 2021-04-11 01:15 | disposition left against medical advice (07) ==
LOC: ER 01:05
DX: J45.901 Unspecified asthma with (acute) exacerbation (principal); Z53.21 Procedure and treatment not carried out due to patient leaving prior to being seen by health care provider

== ENCOUNTER 2021-06-29 01:22 | Emergency (ER) | payer OTHER ==
[~2021-06-29] VITALS: Ht 172.7 cm; Wt 130.0 kg
[2021-06-29 01:30] VITALS: BP 173/83
[2021-06-29] MEDS ORDERED: ALBUTEROL SULFATE 2.5 MG/3 ML NEBU. ONE (01:35)
[2021-06-29] MEDS ORDERED: IPRATRPIUM/ALBUTEROL 0.5/2.5MG 3 ML NEBU. NEB ONE (01:45)
[2021-06-29] MEDS ORDERED: ALBUTEROL SULFATE 2.5 MG/3 ML NEBU. CONT NEB ONE (01:45)
--- NOTE | 2021-06-29 01:57 | NUR ---
pt breath sounds clear after one duoneb breathing treatment, he states that he feels better, requests a minute to take selfie. Will hold continuous breathing treatment for now.Will continue to monitor
--- NOTE | 2021-06-29 02:23 | PHYS DOC ---
Past Medical History Past Medical History: Asthma Past Surgical History: Tonsillectomy Smoking Status: Light Tobacco Smoker Alcohol Use: Rarely Drug Use: None General Adult EDM: Chief Complaint: ASTHMA HPI: HPI: Patient is a 26 year old male who presents with wheezing, shortness of breath, occasional dry cough. Symptoms began within the last 24 hours. He has a history of asthma. He has been referred to a primary care physician and car rental deliverer, he has not followed up for this. He is out of his albuterol inhaler. He denies fevers or chills. He denies sputum production hemoptysis. He denies chest pain. He denies dizziness, nausea, vomiting, abdominal pain. No recent sick contacts or travel history. Review of Systems: Review of Systems: Constitutional: Denies fever or chills. [] HENT: Denies nasal congestion or sore throat. [] Respiratory: Shortness of breath, wheezing, occasional dry cough. No hemoptysis. Cardiovascular: Denies chest pain or edema. [] GI: Denies abdominal pain, nausea, vomiting Musculoskeletal: Denies back pain or joint pain. [] Integument: Denies rash. [] Neurologic: Denies headache, focal weakness or sensory changes. [] Psychiatric: Denies depression or anxiety. [] Heart Score: C/O Chest Pain: No Risk Factors: Risk Factors: DM, Current or recent (<one month) smoker, HTN, HLP, family history of CAD, obesity. Risk Scores: Score 0 - 3: 2.5% MACE over next 6 weeks - Discharge Home Score 4 - 6: 20.3% MACE over next 6 weeks - Admit for Clinical Observation Score 7 - 10: 72.7% MACE over next 6 weeks - Early Invasive Strategies Current Medications: Current Medications Medications (Trade) Dose Ordered Sig/[place] Start Time Stop Time Status Last Admin Dose Admin Albuterol Sulfate (Ventolin Neb Soln) 2.5 mg STK-MED ONCE 06/29/21 01:35 06/29/21 01:35 DC Albuterol/ Ipratropium (Duoneb) 3 ml 1X ONCE 06/29/21 01:45 06/29/21 01:46 DC 06/29/21 01:45 3 ML Allergies: Allergies: Allergies Coded Allergies Type Severity Reaction Last Updated Verified No Known Drug Allergies 8/4/14 No Physical Exam: PE: Constitutional: Well developed, well nourished, no acute distress, non-toxic appearance. [] HENT: Normocephalic, atraumatic, oropharynx is patent and clear, no evidence of facial or trauma Eyes: Conjunctiva normal, no discharge. No scleral icterus. Neck: Normal range of motion, no tenderness, supple, no stridor. Trachea is midline. Cardiovascular:Heart rate regular rhythm, +2 radial pulses bilaterally Lungs & Thorax: Initially, he manifested end expiratory wheezes bilaterally, after DuoNeb and albuterol treatment, lungs are clear to auscultation bilateral without rales, rhonchi or wheezes. No tractions, no tachypnea, no stridor, no evidence of respiratory distress. No cyanosis. He is resting comfortably, s peaking in full and clear sentences. Abdomen: Abdomen is obese, soft, nondistended, nontender to palpation. Skin: Warm, dry, no erythema, no rash. [] Back: No tenderness, no CVA tenderness. [] Extremities: No tenderness, no cyanosis, no clubbing, ROM intact, no edema. No calf tenderness. Neurologic: Alert and oriented X 3, normal motor function, normal sensory function, no focal deficits noted. [] Psychologic: Affect normal, judgement normal, mood normal. [] Current Patient Data: Vital Signs: Vital Signs Date Time Temp Pulse Resp B/P (MAP) Pulse Ox O2 Delivery O2 Flow Rate FiO2 06/29/21 01:36 93 Room Air 06/29/21 01:30 99.7 124 24 173/83 (113) 99.7 EKG: EKG: [] Radiology/Procedures: Radiology/Procedures: [] Course & Med Decision Making: Course & Med Decision Making P.o. prednisone, duo nebs, albuterol neb given. He is resting comfortably. Vital signs are stable. He manifest no evidence of respiratory distress or hypoxia. I discussed the findings, differential diagnosis and plan of care with him. He is given refills for his albuterol, he is once again referred to outpatient pulmonology services and a primary care physician. No indication for further invasive exams, emergent imaging or admission at this time. Return precautions are given. He verbalizes understanding. Víctor Disclaimer: Víctor Disclaimer: This electronic medical record was generated, in whole or in part, using a voice recognition dictation system. Departure Departure Impression: Primary Impression: Asthma exacerbation Qualified Codes: J45.901 - Unspecified asthma with (acute) exacerbation Disposition: HOME / SELF CARE / HOMELESS Condition: STABLE Referrals: UNKNOWN PCP NAME (PCP) RADHA GARBER MD Patient Instructions: Asthma, Acute Bronchospasm, Asthma, Adult Additional Instructions: Use the medication as needed and as directed. Avoid smoking Backo and avoid secondhand smoke. Return to the ER for severe chest pain, refractory or more severe wheezing, more severe shortness of breath or any other concerns. Please contact your primary care doctor and outpatient pulmonology services. Scripts Albuterol Sulfate (VENTOLIN HFA INHALER) 18 Gm Hfa.aer.ad 2 PUFF INH Q4HRS for FOR ASTHMA, #1 EACH 2 Refills Prov: MARK ENGEL DO 06/29/21 Prednisone (PREDNISONE) 50 Mg Tablet 1 TAB PO DAILY for asthma for 4 Days, #4 TAB take next dose on 06/30/21 Prov: MARK ENGEL DO 06/29/21 MARK ENGEL DO Jun 29, 2021 02:23
[2021-06-29] MEDS ORDERED: predniSONE 10 MG TABLET PO ONE (02:30)
[2021-06-29] MEDS ORDERED: PRED50TA PO (02:30)
[2021-06-29] MEDS ORDERED: VENTOLIN HFA18 GM INH (02:30)
== END 2021-06-29 02:40 | disposition home or self-care (01) ==
LOC: ER 01:22
DX: J45.901 Unspecified asthma with (acute) exacerbation (principal); Z72.0 Tobacco use
CPT/HCPCS: 94640; 99284; 99285-25